=== PATIENT | female | born 1970 | race Caucasian/White ===

== ENCOUNTER 2016-04-22 07:30 | Day surgery (SDC) | payer OTHER ==
[~2016-04-22 07:30] MED LIST: PROPOFOL INJ 200 MG/20 ML VIAL IV ONE
[2016-04-22 09:00] VITALS: BP 115/75
--- NOTE | 2016-04-22 12:43 | Operative Report ---
Operative Report DATE OF SURGERY: 04/22/16 Operative Report: The risks benefits and alternatives of the procedure explained to the patient in detail and informed consent is obtained that GIF Olympus video scope was inserted into the patient's mouth and hypopharynx the esophagus is identified intubated and insufflated the scope was then advanced through the esophagus stomach and duodenum retroflexion maneuver is done the esophagus stomach and first and second portions of the duodenum examined PREOPERATIVE DIAGNOSIS: Likely celiac disease, dyspepsia, abdominal pain POSTOPERATIVE DIAGNOSIS: Scalloping in the small intestine rest suggestive of celiac disease. Gastritis as well as biopsy rule out Helicobacter pylori. Esophagitis status post biopsy rule out Manuel's esophagus OPERATION: EGD with biopsy SURGEON: LUIS BOOTH ANESTHESIA: LMAC TISSUE REMOVED OR ALTERED: Gastric specimens obtained. Esophageal specimens obtained COMPLICATIONS: None. ESTIMATED BLOOD LOSS: none. INTRAOPERATIVE FINDINGS: As described above. PROCEDURE: Patient tolerated the procedure well. No immediate postprocedure complications are noted. Patient is discharged in good condition. Date of discharge 04/22/2016. Discharge diet: Regular. Discharge activity: Regular. Patient does have a 2-3 week follow-up to discuss findings. She is instructed to go the emergency room to have any further problems or questions.
== END 2016-04-22 09:00 | disposition home or self-care (01) ==
LOC: END 07:30
PROVIDERS: ATTEND Internal Medicine Gastroenterology
PROC: 0DB58ZX Excision of Esophagus, Via Natural or Artificial Opening Endoscopic, Diagnostic (ICD-10-PCS; 2016-04-22)
PROC: 0DB68ZX Excision of Stomach, Via Natural or Artificial Opening Endoscopic, Diagnostic (ICD-10-PCS; principal; 2016-04-22 08:00)
DX: K29.50 Unspecified chronic gastritis without bleeding (principal); B96.81 Helicobacter pylori [H. pylori] as the cause of diseases classified elsewhere; K20.9 Esophagitis, unspecified; J30.2 Other seasonal allergic rhinitis; Z85.828 Personal history of other malignant neoplasm of skin; Z79.899 Other long term (current) drug therapy; Z88.8 Allergy status to other drugs, medicaments and biological substances; Z91.040 Latex allergy status; Z87.892 Personal history of anaphylaxis
CPT/HCPCS: 43239; 88342 ×2; 88305 ×2; J2704; 740